=== PATIENT | female | born 1995 | race American Indian/Alaskan Native ===

== ENCOUNTER 2016-12-03 01:02 | Emergency (ER) | payer MEDICAID ==
[2016-12-03 08:36] LABS: Basophils % (Auto) 0.7 % (0.0-1.8); Eosinophils % (Auto) 4.1 % (0.0-4.3); Hematocrit 31.9 % (30.3-42.9); Hemoglobin 10.4 gm/dl (10.1-14.3); Mean Corpuscular HGB Conc 33 % (30-34); Mean Corpuscular Hemoglobin 28 pg (28-32); Mean Corpuscular Volume 85 fl (79-97); Platelet Count 255 K/mm3 (140-440); Red Blood Count 3.73 M/mm3 (3.65-5.03); Red Cell Distribution Width 13.9 % (13.2-15.2)
[2016-12-03 09:57] LABS: Bacteria,Urine 1+ /HPF (Negative); Bilirubin,Urine NEG (Negative); Blood,Urine LG (Negative); Ketones,Urine 80 mg/dL (Negative); Leukocyte Esterase,Urine NEG (Negative); Nitrite,Urine NEG (Negative); Urobilinogen,Urine < 2.0 mg/dL (<2.0)
--- NOTE | 2016-12-03 10:22 | Emergency Department Report ---
HPI - General Chief Complaint: Vaginal Bleeding Time Seen by Provider: 12/03/16 09:37 - HPI HPI: This is a 20 year-old female presents to the emergency department with complaint of some vaginal bleeding that started around midnight , all while the patient is about 11 weeks . With this she is . She has gone through about 5 pads since the bleeding began. She had some abdominal cramping but that has appeared to improve. She did not take anything for her symptoms prior to presentation. She does not have any past medical history. She has not on vitamins. She does not have an OB/ [facility]. No recent travel or sick contacts at home. ED Past Medical Hx - Past Medical History Previous Medical History?: No Hx Hypertension: No Hx Congestive Heart Failure: No Hx Diabetes: No Hx Deep Vein Thrombosis: No Hx Renal Disease: No Hx Sickle Cell Disease: No Hx Seizures: No Hx Asthma: No Hx COPD: No Hx HIV: No - Social History Smoking Status: Never Smoker - Medications Home Medications: Home Medications Medication Instructions Recorded Confirmed Last Taken Type Ferrous Sulfate [Feosol 325 MG tab] 325 mg PO QDAY #60 tablet 09/14/15 Unknown Rx Ibuprofen [Motrin 600 MG tab] 600 mg PO Q6H #30 tablet 09/14/15 Unknown Rx Vit No.130/Iron/FA 1 each PO QDAY #30 tablet 12/03/16 Unknown Rx [ Tablet] ED Review of Systems ROS: Stated complaint: VAGINAL BLEEDING Other details as noted in HPI Comment: All other systems reviewed and negative Constitutional: denies: chills, fever Eyes: denies: eye pain, eye discharge, vision change ENT: denies: ear pain, throat pain Respiratory: denies: cough, shortness of breath, wheezing Cardiovascular: denies: chest pain, palpitations Gastrointestinal: abdominal pain. denies: vomiting Genitourinary: other (vaginal bleeding). denies: urgency, dysuria, discharge Musculoskeletal: denies: back pain, joint swelling, arthralgia Skin: denies: rash, lesions Neurological: denies: headache, weakness, paresthesias Physical Exam - Physical Exam Vital Signs: Vital Signs 12/03/16 12/03/16 02:35 09:27 Temperature 97.6 F 98.1 F Pulse Rate 75 78 Respiratory 16 14 Rate Blood Pressure 107/69 Blood Pressure 99/59 [Right] O2 Sat by Pulse 100 96 Oximetry Physical Exam: GENERAL: The patient is well-developed well-nourished. HENT: Normocephalic. Atraumatic. Patient has moist mucous membranes. EYES: Extraocular motions are intact. Pupils equal reactive to light bilaterally. NECK: Supple. Trachea is midline. CHEST/LUNGS: Clear to auscultation. There is no respiratory distress noted. HEART/CARDIOVASCULAR: Regular. There is no tachycardia. There is no gallop rub or murmur. ABDOMEN: Abdomen is soft, nontender. Patient has normal bowel sounds. There is no abdominal distention. SKIN: Skin is warm and dry. NEURO: The patient is awake, alert, and oriented. The patient is cooperative. The patient has no focal neurologic deficits. The patient has normal speech. MUSCULOSKELETAL: There is no tenderness or deformity. There is no limitation range of motion. There is no evidence of acute injury. ED Course Vital Signs 12/03/16 12/03/16 02:35 09:27 Temperature 97.6 F 98.1 F Pulse Rate 75 78 Respiratory 16 14 Rate Blood Pressure 107/69 Blood Pressure 99/59 [Right] O2 Sat by Pulse 100 96 Oximetry ED Medical Decision Making - Lab Data Result diagrams: 12/03/16 08:11 - Radiology Data Radiology results: report reviewed Transabdominal OB ultrasound. History: Vaginal bleeding. Findings: The patient refused transvaginal study. Transabdominal study demonstrates a single IUP with a crown-rump length of 5.3 cm corresponding to a gestational age of 12 weeks. heart rate is 167 beats per minute. There is a large subchorionic hemorrhage measuring 7 x 3.6 cm. The left ovary is normal. There are 2 small cysts within the right ovary. Impression: 1. Viable IUP at 12 weeks gestation. A large subchronic hemorrhage is present. 2. Right ovarian cysts. - Medical Decision Making 20-year-old female who is about 11 weeks presents with some mild abdominal cramping and moderate to heavy vaginal bleeding has been going on since about midnight. Labs are unremarkable and do not show any etiology of her symptoms. Beta hCG confirmed . Ultrasound shows a live intrauterine at about 12 weeks with a large subchorionic bleed. Vital signs stable including being afebrile. She was started on vitamins and given multiple referrals for C[facility]TER. She will return to the ER for any worsening of her symptoms or any acute distress. - Differential Diagnosis , threatened miscarriage, spontaneous , fibroids Critical Care Time: No Critical care attestation.: If time is entered above; I have spent that time in minutes in the direct care of this critically ill patient, excluding procedure time. ED Disposition Clinical Impression: Threatened miscarriage Qualifiers: Weeks of gestation: 12 weeks Qualified Code(s): Z3A.12 - 12 weeks gestation of Subchorionic hematoma in first trimester Qualifiers: Fetus number: single or unspecified fetus Qualified Code(s): O41.8X10 - Other specified disorders of amniotic fluid and membranes, first trimester, not applicable or unspecified Disposition: DC-01 TO HOME OR SELFCARE Is pt being admited?: No Condition: Stable Instructions: Threatened Miscarriage (ED), (ED) Additional Instructions: Please follow up with an CORE SETTER in the next few days. Return to the emergency Department with any worsening of your symptoms or any acute distress. I have started you on vitamins. You can take Tylenol every 4 hours, using weight-based dosing, as needed for any fever or discomfort. Otherwise do not take any medication that is not prescribed by a physician. Prescriptions: Vit No.130/Iron/FA [ Tablet] 1 each PO QDAY #30 tablet Referrals: PRIMARY CARE [Primary Care Provider] - 3-5 Days [facility] [Provider Group] - 3-5 Days [facility] [Provider Group] - 3-5 Days [facility] [Provider Group] - 3-5 Days Forms: Accompanied Note, Work/School Release Form(ED) Time of Disposition: 12:01
--- NOTE | 2016-12-03 11:50 | Ultrasound Report ---
Transabdominal OB ultrasound. History: Vaginal bleeding. Findings: The patient refused transvaginal study. Transabdominal study demonstrates a single IUP with a crown-rump length of 5.3 cm corresponding to a gestational age of 12 weeks. heart rate is 167 beats per minute. There is a large subchorionic hemorrhage measuring 7 x 3.6 cm. The left ovary is normal. There are 2 small cysts within the right ovary. Impression: 1. Viable IUP at 12 weeks gestation. A large subchronic hemorrhage is present. 2. Right ovarian cysts.
[2016-12-03 12:18] VITALS: BP 95/66
== END 2016-12-03 12:18 | disposition home or self-care (01) ==
LOC: ED 01:02
DX: O20.0 Threatened abortion (principal); O41.8X10 Other specified disorders of amniotic fluid and membranes, first trimester, not applicable or unspecified; Z3A.12 12 weeks gestation of pregnancy
CPT/HCPCS: 36415; 76801; 81001; 84702; 85025; 86850; 86900; 86901

== ENCOUNTER 2018-12-15 16:02 | Emergency (ER) | payer MEDICAID ==
[2018-12-15 16:32] VITALS: BP 110/71
--- NOTE | 2018-12-15 16:37 | Event Note ---
ED Screening Note Date of service: 12/15/18 Time: 16:30 ED Screening Note: 23 y o f presents with intermittent headaches states hasnt eaten x 2days PMH: depresion, PTSD, Anxiety was on motazapine for diet and sleep control, out of meds This initial assessment/diagnostic orders/clinical plan/treatment(s) is/are subject to change based on patients health status, clinical progression and re- assessment by fellow clinical providers in the ED. Further treatment and workup at subsequent clinical providers discretion. Patient/guardian urged not to elope from the ED as their condition may be serious if not clinically assessed and managed. Initial orders include: acc eval
--- NOTE | 2018-12-15 17:10 | Emergency Department Report ---
Vomiting/Diarrhea - HPI Chief Complaint: Headache Stated Complaint: CANT EAT/HEADACHE Time Seen by Provider: 12/15/18 16:30 Severity: mild Nausea/Vomiting Severity: Mild Diarrhea Severity: Mild Symptoms: Yes Able to Tolerate Fluids, No Watery Diarrhea, No Bloody diarrhea, No Fever, No Recent Unusual Foods, No Recent Untreated Water, No Recent use of Antibiotics, No Family w/ Similar Symptoms, No Contacts w/ Similar Symptoms, No Rash, No Hematuria, No Recent URI Symptoms Other History: 23 yo comes to ER for her "inabililty to eat" due to being out of her remeron and prozac. She has just moved back to the area and can not get an appnt until 01-27. No HI. No SI. Reports concerns with keeping her job and being able to keep her job. ED Review of Systems ROS: Stated complaint: CANT EAT/HEADACHE Other details as noted in HPI Comment: All other systems reviewed and negative ED Past Medical Hx - Past Medical History Previous Medical History?: Yes Hx Hypertension: No Hx Congestive Heart Failure: No Hx Diabetes: No Hx Deep Vein Thrombosis: No Hx Renal Disease: No Hx Sickle Cell Disease: No Hx Seizures: No Hx Asthma: No Hx COPD: No Hx HIV: No Additional medical history: depression, PTSD, anxiety - Surgical History Past Surgical History?: Yes Additional Surgical History: wisdom teeth extraction - Social History Smoking Status: Never Smoker Substance Use Type: None - Medications Home Medications: Home Medications Medication Instructions Recorded Confirmed Last Taken Type Ferrous Sulfate [Feosol 325 MG tab] 325 mg PO QDAY #60 tablet 09/14/15 Unknown Rx Ibuprofen [Motrin 600 MG tab] 600 mg PO Q6H #30 tablet 09/14/15 Unknown Rx Vit No.130/Iron/Folic 1 each PO QDAY #30 tablet 12/03/16 Unknown Rx [ Tablet] Vomiting Diarrhea Exam - Exam General: Vital signs noted. No distress. Alert and acting appropriately. HEENT: Yes Moist Mucous Membranes, No Pharyngeal Erythema Lungs: Yes Clear Lung Sounds, No Good Air Exchange Heart exam: Regular: Yes Abdomen: Tenderness: No Skin exam: Rash: No Neurologic: Alert and oriented, no deficits. Musculoskeletal: Unremarkable. 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 ASSISTANCE GETTING SEEN BY PSYCH SOONER. RN has notified [facility] [id number] ED Medical Decision Making - Medical Decision Making no hi no si no av hallucination pt has a card in her wallet that has appnt 01-27 she states she can not eat without this med no eating disorder per pt she states she has not eaten in days and her job made her come moist mucous membranes clothing is tight; not indicative of recent weight loss no tachycardia no hypotension will have [facility] staff see her to see if they can assist her with getting appnt with a psychiatrist sooner to avoid job loss and problems with her children. ambulatory and nontoxic on exam dc per E recs Vital Signs 12/15/18 16:30 Temperature 98.9 F Pulse Rate 83 Respiratory 16 Rate Blood Pressure 110/71 [Left] O2 Sat by Pulse 98 Oximetry - Differential Diagnosis psych med refill and concerns Critical care attestation.: If time is entered above; I have spent that time in minutes in the direct care of this critically ill patient, excluding procedure time. ED Disposition Clinical Impression: Medication refill, Mental health disorder Disposition: DC-01 TO HOME OR SELFCARE Is pt being admited?: No Does the pt Need Aspirin: No Condition: Stable Additional Instructions: follow up per mental health instructions Time of Disposition: 18:08
== END 2018-12-15 19:41 | disposition home or self-care (01) ==
LOC: ED 16:02
DX: R51 Headache (principal); Z76.0 Encounter for issue of repeat prescription